=== PATIENT | male | born 1950 | race Caucasian/White ===

== ENCOUNTER → 2019-08-21 | Outpatient (CLI) | payer MEDICARE ==
[~2019-08-21] MED LIST: FLOMAX PO; PERCOCET 5-3251 EACH PO; PHENERGAN 25 MG25 M1 PO
== END ==
LOC: M.LAB 04:00
DX: E87.6 Hypokalemia (principal)

== ENCOUNTER → 2020-07-29 | Outpatient (CLI) | payer MEDICARE | LOC: M.RAD 16:48 | PROVIDERS: ATTEND Internal Medicine | DX: J84.10 Pulmonary fibrosis, unspecified (principal); I70.90 Unspecified atherosclerosis; J15.8 Pneumonia due to other specified bacteria ==